=== PATIENT | female | born 1950 | race Caucasian/White ===

== ENCOUNTER 2022-09-07 17:28 | Emergency (ER) | payer MEDICARE ==
[~2022-09-07] VITALS: Ht 165.1 cm; Wt 82.0 kg
[2022-09-07 17:40] VITALS: BP 151/77
[2022-09-07] MEDS ORDERED: LEVOTHYROXIN75 MCG PO (17:49)
[2022-09-07] MEDS ORDERED: OMEPRAZOLE DR40 MG PO (17:50)
[2022-09-07 18:01] VITALS: BP 135/59
[2022-09-07 18:30] VITALS: BP 147/81
[2022-09-07 19:00] VITALS: BP 148/72
[2022-09-07] MEDS ORDERED: PERCOCET 5/321 COMBO PO (19:12)
[2022-09-07 19:26] VITALS: BP 148/72
== END 2022-09-07 19:37 | disposition home or self-care (01) ==
LOC: ED 17:28
PROC: 2W3BXYZ Immobilization of Left Upper Arm using Other Device (ICD-10-PCS; principal; 2022-09-07)
DX: S42.292A Other displaced fracture of upper end of left humerus, initial encounter for closed fracture (principal); M25.572 Pain in left ankle and joints of left foot; M25.472 Effusion, left ankle; K21.9 Gastro-esophageal reflux disease without esophagitis; W01.0XXA Fall on same level from slipping, tripping and stumbling without subsequent striking against object, initial encounter; Y92.009 Unspecified place in unspecified non-institutional (private) residence as the place of occurrence of the external cause